=== PATIENT | female | born 1930 | race Caucasian/White ===

== ENCOUNTER 2017-06-19 02:43 | Emergency (ER) | payer MEDICARE ==
--- NOTE | 2017-06-19 03:19 | EDM.PDOC ---
ED HPI GENERAL MEDICAL PROBLEM - General Chief Complaint: General Stated Complaint: swelling to feet Time Seen by Provider: 06/19/17 03:00 Source of Information: Reports: Patient, Family () History Limitations: Reports: Altered Mental Status - History of Present Illness INITIAL COMMENTS - FREE TEXT/NARRATIVE: States that her feet have been swelling up and they really hurt. She denies any chest pain or shortness of breathe. She denies being on any medications at this time. Daughter states that she sits with her feet down a lot during the day and that her and her have been eating a lot of canned soups recently. She hasn't been to see a doctor in years. Her and her have moved here from [place] last September to be closer to their daughter Lakia so she can help them. She has dementia. Pt states that she feels fine other than her legs. Onset: Gradual Location: Reports: Lower Extremity, Left, Lower Extremity, Right Quality: Reports: Ache Bilateral Feet Pain Score (Numeric/FACES): 9 - Related Data Allergies Allergy/AdvReac Type Severity Reaction Status Date / Time No Known Allergies Allergy Verified 06/19/17 02:57 Home Meds: Home Meds . [No Known Home Meds] 06/19/17 [History] Past Medical History - Past Health History Medical/Surgical History: Denies Medical/Surgical History - Past Surgical History HEENT Surgical History: Reports: Tonsillectomy Musculoskeletal Surgical History: Reports: Carpal Tunnel (left) Social & Family History - Tobacco Use Smoking Status *Q: Never Smoker - Living Situation & Occupation Living situation: Reports: , with Spouse Occupation: Retired ED ROS GENERAL - Review of Systems Review Of Systems: See Below Constitutional: Reports: No Symptoms HEENT: Reports: No Symptoms Respiratory: Denies: Shortness of Breath, Cough Cardiovascular: Reports: Edema. Denies: Chest Pain GI/Abdominal: Reports: No Symptoms : Reports: No Symptoms Skin: Reports: No Symptoms Neurological: Reports: Confusion ED EXAM, GENERAL - Physical Exam Exam: See Below Exam Limited By: No Limitations General Appearance: Alert, WD/WN, No Apparent Distress Ears: Normal External Exam, Normal Canal, Normal TMs Nose: Normal Inspection Throat/Mouth: Normal Inspection, Normal Oropharynx Head: Atraumatic, Normocephalic Neck: Normal Inspection, Supple, Non-Tender Respiratory/Chest: No Respiratory Distress, Lungs Clear, Normal Breath Sounds Cardiovascular: Regular Rate, Rhythm GI/Abdominal: Normal Bowel Sounds, Soft, Non-Tender Back Exam: Normal Inspection Extremities: Normal Inspection, Normal Capillary Refill, Pedal Edema (lower extrmities are swollen and have 2-3+ edema bilaterally. Skin shiny but no open areas noted.) Neurological: Alert Skin Exam: Warm, Dry, Intact Course - Vital Signs Last Recorded V/S: Last Vital Signs Temp 97.7 F 06/19/17 02:48 Pulse 95 06/19/17 02:48 Resp 18 06/19/17 02:48 BP 170/78 H 06/19/17 02:48 Pulse Ox 96 06/19/17 02:48 - Orders/Labs/Meds Orders: Active Orders 24 hr Category Date Time Status BASIC METABOLIC PANEL,BMP [CHEM] Stat Lab 06/19/17 03:30 Received PRO B-TYPE NATRIUR PEPT,BNPPRO [CHEM] Stat Lab 06/19/17 03:30 Received Labs: Laboratory Tests 06/19/17 Range/Units 03:30 WBC 8.0 (5.0-10.0) 10^3/uL RBC 3.90 L (4.00-5.50) 10^6/uL Hgb 12.2 (12.0-16.0) g/dL Hct 37.5 (37.0-47.0) % MCV 96.2 H (82.0-94.0) fL MCH 31.3 (27.0-32.0) pg MCHC 32.5 L (33.0-38.0) g/dL RDW Coeff of [place] 13.8 (11.0-15.0) % Plt Count 238 (150-400) 10^3/uL Neut % (Auto) 73.1 (35-85) % Lymph % (Auto) 12.9 (10-55) % [place] % (Auto) 8.9 (0-16) % Eos % (Auto) 4.4 (0-5) % Baso % (Auto) 0.7 (0-3) % Neut # (Auto) 5.86 (1.80-7.00) 10^3/uL Lymph # (Auto) 1.03 (1.00-4.80) 10^3/uL [place] # (Auto) 0.71 (0.00-0.80) 10^3/uL Eos # (Auto) 0.35 (0.00-0.45) 10^3/uL Baso # (Auto) 0.06 10^3/uL Departure - Departure Time of Disposition: 04:00 Disposition: Home, Self-Care 01 Condition: Good Clinical Impression: Dependent edema - Discharge Information Instructions: Edema, Peripheral Edema Forms: ED Department Discharge Additional Instructions: Elevate legs when sitting. SHIRAZ Hose that you put on first thing in the morning and take off when you go to bed. Avoid extra salt. Lasix 20 mg daily for the next week to help get the fluid out of legs. Recheck in 7-10 days for recheck of legs. You can do this at the clinic in [place]. Clinic number [phone] please call and schedule appointment. - Problem List & Annotations (1) Dependent edema SNOMED Code(s): 841456181 Code(s): R60.9 - EDEMA, UNSPECIFIED Status: Acute Priority: High Current Visit: Yes - Problem List Review Problem List Initiated/Reviewed/Updated: Yes - My Orders Last 24 Hours: My Active Orders 06/19/17 03:30 BASIC METABOLIC PANEL,BMP [CHEM] Stat PRO B-TYPE NATRIUR PEPT,BNPPRO [CHEM] Stat - Assessment/Plan Last 24 Hours: My Active Orders 06/19/17 03:30 BASIC METABOLIC PANEL,BMP [CHEM] Stat PRO B-TYPE NATRIUR PEPT,BNPPRO [CHEM] Stat
[2017-06-19] MEDS ORDERED: Furosemide 20 MG Tab PO ONE (04:00)
== END 2017-06-19 04:11 | disposition home or self-care (01) ==
LOC: CC.ED 02:43
DX: R60.0 Localized edema (principal)
CPT/HCPCS: 36415; 80048; 83880; 85025; 99283; A9270-GY